=== PATIENT | female | born 1945 | race Caucasian/White ===

== ENCOUNTER 2016-11-28 02:38 | Emergency (ER) | payer MEDICARE, OTHER ==
[2016-11-28 03:16] VITALS: BP 131/69
== END 2016-11-28 05:10 | disposition left against medical advice (07) ==
LOC: ER 02:38
DX: Z53.21 Procedure and treatment not carried out due to patient leaving prior to being seen by health care provider (principal)

== ENCOUNTER 2018-01-08 12:54 | Emergency (ER) | payer MEDICARE, OTHER ==
[2018-01-08] MEDS ORDERED: ALBUTEROL SULFATE 0.083% NEB 2.5 MG/3 ML AMPUL NEB ONE (13:44)
--- NOTE | 2018-01-08 13:46 | ER Document Report ---
ED Medical Screen (RME) - General Chief Complaint: Shortness Of Breath Stated Complaint: COUGH/CHEST PRESSURE Time Seen by Provider: 01/08/18 13:37 Notes: 72 years old female with a history of COPD, continuously smoking, scleroderma, was treated with IV steroids for 3 weeks, without much improvement as well as pulse oximeter was running around 90s at the urgent care. Therefore she was sent over to the ED. She also was coughing largely dry cough. -Bilaterally decreased breath sounds TRAVEL OUTSIDE OF THE [place] IN LAST 30 DAYS: No - Related Data Allergies/Adverse Reactions: acetaminophen [From Percocet] Allergy (Verified 01/08/18 13:22) AFFECTS TASTE BUDS baclofen [Baclofen] Allergy (Verified 01/08/18 13:22) Hives budesonide [From Symbicort] Allergy (Verified 01/08/18 13:22) FLU LIKE SYMPTOMS bupropion HCl [From Wellbutrin] Allergy (Verified 01/08/18 13:22) Hives ciprofloxacin [From Cipro] Allergy (Verified 01/08/18 13:22) Hives ciprofloxacin HCl [From Cipro] Allergy (Verified 01/08/18 13:22) Hives formoterol fumarate [From Symbicort] Allergy (Verified 01/08/18 13:22) FLU LIKE SYMPTOMS ibandronate sodium [From Boniva] Allergy (Verified 01/08/18 13:22) FLU LIKE SYMPTOMS neomycin [Neomycin] Allergy (Verified 01/08/18 13:22) SWELLING nicotine [Nicotine] Allergy (Verified 01/08/18 13:22) SINUS PROBLEMS oxycodone HCl [From Percocet] Allergy (Verified 01/08/18 13:22) AFFECTS TASTE BUDS Xnbkvqx-Iad-Kag Reductase Inhibitor Allergy (Verified 01/08/18 13:22) PERIPHERAL NEUROPATHY Sulfa (Sulfonamide Antibiotics) Allergy (Verified 01/08/18 13:22) ALLERGY sulfamethoxazole [From Septra] Allergy (Verified 01/08/18 13:22) UNKNOWN trimethoprim [From Septra] Allergy (Verified 01/08/18 13:22) UNKNOWN aspirin [Aspirin] Adverse Reaction (Verified 01/08/18 13:22) ULCERS codeine [Codeine] Adverse Reaction (Verified 01/08/18 13:22) STOMACH ACHE Past Medical History - Social History Chew tobacco use (# tins/day): No Frequency of alcohol use: None Drug Abuse: None - Past Medical History Cardiac Medical History: Denies: Hx Heart Attack, Hx Hypertension Pulmonary Medical History: Reports: Hx Asthma, Hx COPD, Hx Pneumonia Neurological Medical History: Denies: Hx Cerebrovascular Accident, Hx Seizures Renal/ Medical History: Denies: Hx Peritoneal Dialysis GI Medical History: Reports: Hx Ulcer. Denies: Hx Hepatitis, Hx Hiatal Hernia Musculoskeltal Medical History: Reports Hx Arthritis - RA, Ebony Seay Infectious Medical History: Denies: Hx Hepatitis Past Surgical History: Reports: Hx Cardiac Catheterization, Hx Open Heart Surgery - cardiac cath x2. Denies: Hx Mastectomy, Hx Pacemaker Physical Exam - Vital signs Vitals: Temp Pulse Resp BP Pulse Ox 98.0 F 100 16 127/76 H 93 01/08/18 12:59 01/08/18 12:59 01/08/18 12:59 01/08/18 12:59 01/08/18 12:59 Course - Vital Signs Vital signs: Temp Pulse Resp BP Pulse Ox 98.0 F 100 16 127/76 H 93 01/08/18 12:59 01/08/18 12:59 01/08/18 12:59 01/08/18 12:59 01/08/18 12:59
[2018-01-08 14:48] LABS: ABSOLUTE BASOPHILS # (AUTO) 0.1 10^3/uL (0.0-0.2); ABSOLUTE EOSINOPHILS # (AUTO) 1.6 10^3/uL (0.0-0.6); ABSOLUTE LYMPHOCYTES (AUTO) 2.5 10^3/uL (0.5-4.7); ABSOLUTE MONOCYTES (AUTO) 0.7 10^3/uL (0.1-1.4); ABSOLUTE NEUT (AUTO) 3.6 10^3/uL (1.7-8.2); BASOPHILS % (AUTO) 0.6 % (0-2); EOSINOPHILS % (AUTO) 19.1 % (0-6); HEMATOCRIT 42.4 % (36.0-47.0); HEMOGLOBIN 14.6 g/dL (12.0-15.5); LYMPHOCYTES % (AUTO) 29.3 % (13-45); MEAN CORPUSCULAR HEMOGLOBIN 31.8 pg (27.0-33.4); MEAN CORPUSCULAR HGB CONC 34.3 g/dL (32.0-36.0); MEAN CORPUSCULAR VOLUME 93 fl (80-97); MONOCYTES % (AUTO) 8.1 % (3-13); PLATELET COUNT 227 10^3/uL (150-450); RED BLOOD COUNT 4.57 10^6/uL (3.72-5.28); RED CELL DISTRIBUTION WIDTH 13.4 % (11.5-14.0); SEGMENTED NEUTROPHILS % (AUTO) 42.9 % (42-78); TOTAL CELLS COUNTED % (AUTO) 100 %; WHITE BLOOD COUNT 8.5 10^3/uL (4.0-10.5)
--- NOTE | 2018-01-08 14:54 | ER Document Report ---
ED General - General Chief Complaint: Shortness Of Breath Stated Complaint: COUGH/CHEST PRESSURE Time Seen by Provider: 01/08/18 13:37 TRAVEL OUTSIDE OF THE [place] IN LAST 30 DAYS: No - HPI Notes: 72-year-old female with history of COPD, scleroderma, still smoking, not on home oxygen, presents with increased shortness of breath and cough for the past 2 weeks. She has been seen almost daily at the urgent care clinic for IV steroids. She was also given 1 course of oral prednisone and Zithromax. She has albuterol nebs and inhaled steroids at home. She was told she had viral pneumonia. She states occasionally sputum is yellow. She denies any hemoptysis. No history of pulmonary embolism. She has had low-grade fevers that have been improving. She reports chest tightness. She was told by her primary care physician to come to the emergency department because her oxygen saturations were 90%. She has a follow-up appointment tomorrow and is scheduled to follow-up with health care administrator soon. - Related Data Allergies/Adverse Reactions: acetaminophen [From Percocet] Allergy (Verified 01/08/18 13:22) AFFECTS TASTE BUDS baclofen [Baclofen] Allergy (Verified 01/08/18 13:22) Hives budesonide [From Symbicort] Allergy (Verified 01/08/18 13:22) FLU LIKE SYMPTOMS bupropion HCl [From Wellbutrin] Allergy (Verified 01/08/18 13:22) Hives ciprofloxacin [From Cipro] Allergy (Verified 01/08/18 13:22) Hives ciprofloxacin HCl [From Cipro] Allergy (Verified 01/08/18 13:22) Hives formoterol fumarate [From Symbicort] Allergy (Verified 01/08/18 13:22) FLU LIKE SYMPTOMS ibandronate sodium [From Boniva] Allergy (Verified 01/08/18 13:22) FLU LIKE SYMPTOMS neomycin [Neomycin] Allergy (Verified 01/08/18 13:22) SWELLING nicotine [Nicotine] Allergy (Verified 01/08/18 13:22) SINUS PROBLEMS oxycodone HCl [From Percocet] Allergy (Verified 01/08/18 13:22) AFFECTS TASTE BUDS Twzkbjk-Umu-Sbm Reductase Inhibitor Allergy (Verified 01/08/18 13:22) PERIPHERAL NEUROPATHY Sulfa (Sulfonamide Antibiotics) Allergy (Verified 01/08/18 13:22) ALLERGY sulfamethoxazole [From Septra] Allergy (Verified 01/08/18 13:22) UNKNOWN trimethoprim [From Septra] Allergy (Verified 01/08/18 13:22) UNKNOWN aspirin [Aspirin] Adverse Reaction (Verified 01/08/18 13:22) ULCERS codeine [Codeine] Adverse Reaction (Verified 01/08/18 13:22) STOMACH ACHE Past Medical History - Social History Smoking Status: Current Every Day Smoker Chew tobacco use (# tins/day): No Frequency of alcohol use: None Drug Abuse: None Family History: Reviewed & Not Pertinent Patient has suicidal ideation: No Patient has homicidal ideation: No - Past Medical History Cardiac Medical History: Denies: Hx Heart Attack, Hx Hypertension Pulmonary Medical History: Reports: Hx Asthma, Hx COPD, Hx Pneumonia Neurological Medical History: Denies: Hx Cerebrovascular Accident, Hx Seizures Renal/ Medical History: Denies: Hx Peritoneal Dialysis GI Medical History: Reports: Hx Ulcer. Denies: Hx Hepatitis, Hx Hiatal Hernia Musculoskeletal Medical History: Reports Hx Arthritis - RA, Ebony Seay Infectious Medical History: Denies: Hx Hepatitis Past Surgical History: Reports: Hx Cardiac Catheterization, Hx Open Heart Surgery - cardiac cath x2. Denies: Hx Mastectomy, Hx Pacemaker Review of Systems - Review of Systems Notes: Constitutional: Positive for low-grade fever HENT: Negative for sore throat. Eyes: Negative for visual changes. Cardiovascular: Positive for chest tightness with cough Respiratory: Positive for shortness of breath and wheezing Gastrointestinal: Negative for abdominal pain, vomiting or diarrhea. Genitourinary: Negative for dysuria. Musculoskeletal: Negative for back pain. Skin: Negative for rash. Neurological: Negative for headaches, weakness or numbness. 10 point ROS negative except as marked above and in HPI. Physical Exam - Vital signs Vitals: Temp Pulse Resp BP Pulse Ox 98.0 F 100 16 127/76 H 93 01/08/18 12:59 01/08/18 12:59 01/08/18 12:59 01/08/18 12:59 01/08/18 12:59 - Notes Notes: PHYSICAL EXAMINATION: GENERAL: Well-appearing, well-nourished and in no acute distress. HEAD: Atraumatic, normocephalic. EYES: Pupils equal round and reactive to light, extraocular movements intact, conjunctiva are normal. ENT: nares patent, oropharynx clear without exudates. Moist mucous membranes. NECK: Normal range of motion, supple without lymphadenopathy LUNGS: Breath sounds diminished. Rhonchi appreciated only with cough. No wheezing. No tachypnea. HEART: Regular rate and rhythm, no chest wall tenderness ABDOMEN: Soft, nontender, normoactive bowel sounds. No guarding, no rebound. No masses appreciated. EXTREMITIES: Normal range of motion, no pitting or edema. No cyanosis. NEUROLOGICAL: Cranial nerves grossly intact. Normal speech, normal gait. Normal sensory and motor exams. PSYCH: Normal mood, normal affect. SKIN: Warm, Dry, normal turgor, no rashes or lesions noted. Course - Re-evaluation Re-evalutation: 01/08/18 14:54 Patient appears comfortable. Sats currently 99% on room air. Will check labs and chest x-ray. 01/08/18 17:06 Chest x-ray shows no infiltrate. Sats remain above 95%. No indication for admission. Advise close follow-up with health care administrator. At this time will discharge with return precautions and follow-up recommendations. Verbal discharge instructions given a the bedside and opportunity for questions given. Medication warnings reviewed. Patient is in agreement with this plan and has verbalized understanding of return precautions and the need for primary care follow-up in the next 24-72 hours. - Vital Signs Vital signs: Temp Pulse Resp BP Pulse Ox 98.0 F 100 16 127/76 H 95 01/08/18 12:59 01/08/18 12:59 01/08/18 12:59 01/08/18 12:59 01/08/18 13:48 - Laboratory Result Diagrams: 01/08/18 13:50 01/08/18 13:50 Laboratory results interpreted by me: 01/08/18 01/08/18 01/08/18 13:48 13:50 13:50 Eosinophils % 19.1 H Absolute Eosinophils 1.6 H Carbon Dioxide 31 H BUN 21 H Glucose 68 L Urine Blood SMALL H Discharge - Discharge Clinical Impression: COPD exacerbation Condition: Stable Disposition: HOME, SELF-CARE Instructions: Chronic Obstructive Lung Disease ([facility]) Additional Instructions: You must follow-up closely with your health care administrator and primary care physician for further management of her chronic lung disease. Return for any worsening or concerning symptoms. Continue albuterol as needed for shortness of breath and chest tightness. Prescriptions: Benzonatate [Tessalon Perles 100 mg Capsule] 100 mg PO ASDIR PRN #20 capsule PRN Reason: Forms: Smoking Cessation Education Referrals: SOLANGE ERVIN MD [ACTIVE STAFF] - Follow up tomorrow
[2018-01-08 15:15] LABS: ALANINE AMINOTRANSFERASE 36 U/L (9-52); ALBUMIN 3.9 g/dL (3.5-5.0); ALKALINE PHOSPHATASE 64 U/L (38-126); ANION GAP 10 (5-19); ASPARTATE AMINO TRANSFERASE 32 U/L (14-36); BILIRUBIN,DIRECT 0.3 mg/dL (0.0-0.4); BILIRUBIN,TOTAL 0.8 mg/dL (0.2-1.3); BLOOD UREA NITROGEN 21 mg/dL (7-20); CALCIUM 9.7 mg/dL (8.4-10.2); CARBON DIOXIDE 31 mmol/L (22-30); CHLORIDE 102 mmol/L (98-107); GLUCOSE 68 mg/dL (75-110); POTASSIUM 4.4 mmol/L (3.6-5.0); SODIUM 143.3 mmol/L (137-145); TOTAL PROTEIN 6.7 g/dL (6.3-8.2)
--- NOTE | 2018-01-08 15:47 | RADIOLOGY REPORT (SQ) ---
EXAM DESCRIPTION: CHEST SINGLE VIEW COMPLETED DATE/TIME: 01/08/2018 2:53 pm REASON FOR STUDY: Cough, COPD COMPARISON: None. EXAM PARAMETERS: NUMBER OF VIEWS: One view. TECHNIQUE: Single frontal radiographic view of the chest acquired. RADIATION DOSE: NA LIMITATIONS: None. FINDINGS: LUNGS AND PLEURA: No opacities, masses or pneumothorax. No pleural effusion. Hyperinflati on MEDIASTINUM AND HILAR STRUCTURES: Slight prominence of the right hilum- probably vascular. Shallow f rontal obliques and lateral projection may be helpful. HEART AND VASCULAR STRUCTURES: Heart normal in size. Normal vasculature. BONES: No acute findings. HARDWARE: None in the chest. OTHER: No other significant finding. IMPRESSION: COPD. No active pulmonary infiltrates. Slight prominence the right hilar region that m ay be related to pulmonary vessels however shallow frontal obliques and lateral view may be helpful f or more definitive evaluation. TECHNICAL DOCUMENTATION: JOB ID: [id number] [employer]- All Rights Reserved Reading location - IP/workstation name: [email or web address]
[2018-01-08 15:51] LABS: APPEARANCE,URINE CLEAR; BILIRUBIN,URINE NEGATIVE (NEGATIVE); COLOR,URINE YELLOW; GLUCOSE, URINE NEGATIVE (NEGATIVE); KETONES,URINE NEGATIVE (NEGATIVE); LEUKOCYTE ESTERASE,URINE NEGATIVE (NEGATIVE); NITRITE,URINE NEGATIVE (NEGATIVE); PROTEIN,URINE NEGATIVE (NEGATIVE); URINE SPECIFIC GRAVITY 1.013; UROBILINOGEN,URINE NEGATIVE mg/dL (<2.0)
[2018-01-08 17:29] VITALS: BP 116/68
--- NOTE | 2018-01-09 07:36 | EKG REPORT ---
SEVERITY:- BORDERLINE ECG - SINUS RHYTHM BORDERLINE T ABNORMALITIES, ANT-LAT LEADS : Confirmed by: Waqar Dixon MD 09-Jan-2018 07:35:40
== END 2018-01-08 17:20 | disposition home or self-care (01) ==
LOC: ER 12:54
DX: J44.1 Chronic obstructive pulmonary disease with (acute) exacerbation (principal); R06.02 Shortness of breath; R05 Cough; R50.9 Fever, unspecified; R07.9 Chest pain, unspecified; R06.2 Wheezing; F17.200 Nicotine dependence, unspecified, uncomplicated
CPT/HCPCS: 93005; 94640; 99285; 36415; 85025; 80053; 81001; 71045; 93010; A9270